=== PATIENT | male | born 1940 | race Caucasian/White ===

== ENCOUNTER 2016-04-05 16:17 | Emergency (ER) | payer MEDICARE, OTHER ==
[~2016-04-05] VITALS: Ht 170.2 cm; Wt 86.5 kg
[2016-04-05 16:25] VITALS: Ht 170.2 cm; Wt 86.5 kg
[2016-04-05] MEDS ORDERED: CEPH-443 PO (17:56)
--- NOTE | 2016-04-05 18:05 | ERD ---
ER Documentation Chief Complaint Date/Time DATE: 04/05/16 TIME: 18:00 Chief Complaint LT WRIST PAIN AND BRUISING S/P "HIT WRIST ON A TABLE" HPI This is a 76-year-old male presents to the ER because yesterday he was walking near a table scraped his left forearm. Patient states that he started bleeding immediately, patient cleaned the area and wrapped it however this morning was still bleeding a little bit. Patient is concerned about an infection. He does not have any fevers or chills. There is no discharge from area. He is not on blood thinning medication. Patient denies any forearm or wrist pain. He denies any numbness or tingling of the area. ROS 12 point review of systems was done, all negative except per HPI. Medications Home Meds Active Scripts Cephalexin* (Keflex*) 500 Mg Capsule, 500 MG PO QID for 5 Days, CAP Prov:ULYSSES PEDRO Rosa Maria 04/05/16 PMhx/Soc Medical and Surgical Hx: pt denies Medical Hx, pt denies Surgical Hx Physical Exam Vitals Vital Signs Date Time Temp Pulse Resp B/P Pulse Ox O2 Delivery O2 Flow Rate FiO2 04/05/16 16:25 97.9 64 16 198/82 98 Physical Exam GENERAL: The patient is well developed and appropriate for usual state of health , in no apparent distress. HEENT: Atraumatic. CHEST: Clear to auscultation bilaterally. There are no rales, wheezes or rhonchi. HEART: Regular rate and rhythm. No murmurs, clicks, rubs or gallops. EXTREMITIES: normal ROM of the left wrist. no snuffbox tenderness. Forearm is not TTP. +2 pulses NEURO: Alert and oriented. SKIN: Patient has a skin avulsion to his left forearm no erythema no edema no discharge Procedures/MDM This is a 76-year-old male presents to the ER with a skin avulsion to his left forearm. Bleeding was controlled before arriving to the ER. At this time she is not tender to palpation to the wrist or forearm. I doubt fracture or dislocation. There is no evidence of infection however patient will be given a prescription for Keflex only to be used if he notices increased redness or discharge from area. Patient wound was irrigated and a dressing was applied. She is afebrile and well-appearing. He has normal range of motion of his wrist and he is neurovascularly intact. Patient needs to follow-up with his primary care doctor within 1-2 days return to ER sooner if symptoms worsen. Plan was discussed with the patient he understands and agrees with plan Departure Diagnosis: Primary Impression: Skin avulsion Condition: Stable Patient Instructions: Skin Avulsion Additional Instructions: Call your primary care doctor TOMORROW for an appointment during the next 1-2 days.See the doctor sooner or return here if your condition worsens before your appointment time. ULYSSES PEDRO Apr 05, 2016 18:05
[2016-04-05] MEDS ORDERED: IBUP-1542 PO (18:26)
[2016-04-05] MEDS ORDERED: ACET500C5 PO (18:28)
[2016-04-05 18:41] VITALS: BP 147/67; PULSE 56; RESP 16; TEMP 98.1
== END 2016-04-05 18:41 | disposition home or self-care (01) ==
LOC: FTE 16:17
DX: S51.802A Unspecified open wound of left forearm, initial encounter (principal); W22.03XA Walked into furniture, initial encounter; Y92.9 Unspecified place or not applicable
CPT/HCPCS: 99283